=== PATIENT | male | born 1960 | race Caucasian/White ===

== ENCOUNTER 2017-08-26 15:11 | Emergency (ER) | payer BC ==
[~2017-08-26] VITALS: Ht 185.4 cm; Wt 141.1 kg
[~2017-08-26 15:11] MED LIST: ALEVE220 MG PO; ASPIRIN EC81 MG PO; BENADRYL25 MG PO; IBUPROFEN800 MG PO
[2017-08-26] MEDS ORDERED: HYOSCYAMINE0.125 M1 SL (15:45)
[2017-08-26] MEDS ORDERED: LATANOPROST2.5 ML OPTH (15:45)
[2017-08-26] MEDS ORDERED: LEVOTHYROXINE50 MCG PO (15:45)
[2017-08-26] MEDS ORDERED: LISINOPRIL10 MG PO (15:45)
[2017-08-26] MEDS ORDERED: GLUCOSAMINE1000 MG PO (15:46)
--- NOTE | 2017-08-28 17:48 | EKG ---
[facility] [address] [facility] [place], [place] [address] Signed Sinus bradycardia with sinus arrhythmia Otherwise normal ECG No previous ECGs available Confirmed by NIKO TERAN MD ([id number]) on 08/28/2017 5:47:42 PM Electronically Signed By: NIKO TERAN MD 08/28/17 1748 PATIENT NAME: OMAYRA ALVARADO Electrocardiogram DATE OF : 62 PHYSICIAN: NIKO TERAN MD REPORT #: [id number] REPORT IS CONFIDENTIAL AND NOT TO BE RELEASED WITHOUT AUTHORIZATION
== END 2017-08-26 17:24 | disposition home or self-care (01) ==
LOC: ED 15:11
DX: I49.3 Ventricular premature depolarization (principal); R42 Dizziness and giddiness; E03.9 Hypothyroidism, unspecified; I10 Essential (primary) hypertension; K21.9 Gastro-esophageal reflux disease without esophagitis; Z87.891 Personal history of nicotine dependence; Z88.8 Allergy status to other drugs, medicaments and biological substances; Z79.899 Other long term (current) drug therapy; Z79.82 Long term (current) use of aspirin
CPT/HCPCS: 70450; 71045; 80053; 84484; 85025; 85379; 85610; 93005; 93010; 99284

== ENCOUNTER 2022-06-26 09:29 | Day surgery (SDC) | payer BC ==
[~2022-06-26] VITALS: Ht 185.4 cm; Wt 142.0 kg
[~2022-06-26 09:29] MED LIST changes: +GLUCOSAMINE1000 MG PO; +HYOSCYAMINE0.125 M1 SL; +LATANOPROST2.5 ML OPTH; +LEVOTHYROXINE50 MCG PO; +LISINOPRIL10 MG PO
[2022-06-26] MEDS ORDERED: COZAAR50 MG PO (09:51)
[2022-06-26] MEDS ORDERED: XYZAL5 MG PO (09:51)
[2022-06-26] MEDS ORDERED: LUTEIN 15 MG S1 EACH PO (09:52)
--- NOTE | 2022-06-26 10:46 | NUR ---
CHECKED ON PT, HE IS RESTING COMFORTABLE, ASSURED HIM IT SHOULD NOT BE MUCH LONGER BEFORE THEY COME GET HIM FOR SURGERY. OFFERED WARM BLANKET.
--- NOTE | 2022-06-26 11:40 | NUR ---
06/26/22 1140 Lorena Brewer 1135- PT ARRIVES TO PACU AWAKE AND TALKING. PT REPORTS SOME ABD CRAMPING RATING THE PAIN A 5/10. ENCOURAGED PT TO PASS FLATUS. RESP EVEN AND UNLABORED. OXYGEN SAT MID TO HIGH 90'S ON 3L VIA CO2 NC.
--- NOTE | 2022-06-28 13:32 | OR ---
[facility] [address] [place], [place] [address] Signed DATE OF OPERATION: 06/26/2022 SURGEON: Pravin Reynolds MD PREOPERATIVE DIAGNOSIS: Recurrent diverticulitis. POSTOPERATIVE DIAGNOSES: 1. Sigmoid and left-sided diverticulosis. 2. Prominent mucosa at the appendiceal orifice (biopsied). PROCEDURE: Total colonoscopy to cecum with biopsy of appendiceal orifice. ANESTHESIA: Intravenous sedation; fentanyl 200 mcg and Versed 8 mg. INDICATIONS: This 61-year-old white man is a patient of Dr. Alexander Dumont. He is a retired nurse from [employer]. He last underwent colonoscopy in 2015 noted for diverticulosis. He had biopsies showing minimal nonspecific chronic inflammation of the cecum at that time. The patient has been bothered by recurrent left lower abdominal pain consistent with acute diverticular inflammation. He is admitted at this time to undergo colonoscopy to assure that there is no evidence of neoplasm, masquerading as acute recurrent diverticulitis. The risks of bleeding, infection, perforation, and so forth were reviewed with him, he understands and wished to proceed. FINDINGS: Numerous diverticula were seen in the sigmoid and left colon. There was no sign of stricture or neoplasm and no sign of active inflammation. The remaining colon showed no evidence of polyps or cancer. There is fullness in the appendiceal orifice, which is probably normal. The biopsy obtained, nevertheless, to assure that this did not represent an appendiceal orifice adenoma. It is recalled that he underwent appendectomy in 1999 and on that basis this may represent prominence of the mucosa with inversion of the appendiceal stump. There were no other findings of concern. DESCRIPTION OF PROCEDURE: The patient was brought to the endoscopy suite and placed in lateral decubitus position Electronically Signed By: PRAVIN REYNOLDS MD 06/28/22 1332 PATIENT NAME: OMAYRA ALVARADO OPERATIVE REPORT DATE OF : 62 REPORT #: [id number] PHYSICIAN: PRAVIN REYNOLDS MD PCP: ALEXANDER DUMONT MD REPORT IS CONFIDENTIAL AND NOT TO BE RELEASED WITHOUT AUTHORIZATION [facility] [address] [place], [place] [address] Signed given intravenous sedation to the point of slurred speech and nystagmus. Digital rectal examination was normal. Full cardiopulmonary monitoring was maintained. An Olympus video colonoscope was passed into the rectum and manipulated throughout the colon ultimately intubating the cecum. Abdominal wall stabilization was required for full intubation of the right colon. The cecum was entered fully. Irrigation was undertaken. There was no evidence of neoplasm or particularly inflammation, though there was prominence in the mucosa of the appendiceal orifice. This did not appear to be malignant and more than likely was only some mild hyperplasia, it was biopsied, nevertheless. The scope was then withdrawn and examination throughout undertaken showing no evidence of polyps or colitis, only diverticular changes of the left colon and sigmoid as previously noted. Retroflexed view of the rectum was normal. Scope was removed. The patient was taken to the recovery room in good condition. CONCLUDING DIAGNOSIS: 1. Diverticulosis without evidence of neoplasm. 2. Appendiceal orifice hyperplasia, biopsied. PLAN: We will see him back in July and review his situation. Consideration for elective sigmoid resection might be made as he has had approximately four bouts of rather significant acute sigmoid diverticulitis in the past year. Prvain Reynolds MD JM/MODL /[id number] cc: Alexander Dumont MD Copies: ALEXANDER DUMONT MD ~ Electronically Signed By: PRAVIN REYNOLDS MD 06/28/22 1332 PATIENT NAME: OMAYRA ALVARADO OPERATIVE REPORT DATE OF : 62 REPORT #: [id number] PHYSICIAN: PRAVIN REYNOLDS MD PCP: ALEXANDER DUMONT MD REPORT IS CONFIDENTIAL AND NOT TO BE RELEASED WITHOUT AUTHORIZATION
--- NOTE | 2022-07-01 12:22 | PATH ---
[facility] [address] [place], [place] [address] Signed SPECIMEN(S): A APPENDICEAL ORIFICE BIOPSY SPECIMEN SOURCE: A. APPENDICEAL ORIFICE BIOPSY CLINICAL HISTORY: History of diverticulosis. Postop: Diverticulosis, appendiceal orifice hyperplasia. FINAL PATHOLOGIC DIAGNOSIS: Appendiceal orifice biopsy: - Colonic mucosa with slight hyperplastic features (three fragments). - Negative for malignancy. JVR:smh:C2NR MICROSCOPIC EXAMINATION: Histologic sections of all submitted blocks are examined by light microscopy. These findings, together with the gross examination, support the pathologic diagnosis. GROSS DESCRIPTION: The specimen, labeled "AP, appendiceal orifice biopsy," is received in formalin and consists of three barry soft tissue fragments that measure 0.1-0.2 cm in greatest dimension. The specimen is entirely submitted in cassette (Y1). VB (under the direct supervision of a pathologist) The Gross Description was prepared using a voice recognition system. The report was reviewed for accuracy; however, sound-alike word errors, addition and/or deletions may occur. If there is any question about this report, please contact Client Services. PERFORMING LABORATORY: The technical component was performed by [facility], [address] [place] [id number] (CLIA# [id number]). Professional interpretation was performed by [facility] - [facility], [address] [place] [id number] (CLIA#: [id number]). Diagnostician: Krystian Cotter MD Pathologist Electronically Signed 07/01/2022 PATIENT NAME: OMAYRA ALVARADO PATHOLOGY DATE OF : 62 REPORT #: [id number] PHYSICIAN: [facility] PCP: ANTHONY OLIVAREZ MD REPORT IS CONFIDENTIAL AND NOT TO BE RELEASED WITHOUT AUTHORIZATION [address] [address] Signed Copies: ~ PATIENT NAME: OMAYRA ALVARADO PATHOLOGY DATE OF : 62 REPORT #: [id number] PHYSICIAN: [facility] PCP: ANTHONY LOIVAREZ MD REPORT IS CONFIDENTIAL AND NOT TO BE RELEASED WITHOUT AUTHORIZATION
== END 2022-06-26 12:15 | disposition home or self-care (01) ==
LOC: OPS 09:29 → DS 09:33 → OPS 11:00 → DS 11:00 → OPS 12:15 → DS 13:00
PROVIDERS: ATTEND Surgery
PROC: 0DBE8ZX Excision of Large Intestine, Via Natural or Artificial Opening Endoscopic, Diagnostic (ICD-10-PCS; principal; 2022-06-26 11:00)
DX: Z12.11 Encounter for screening for malignant neoplasm of colon (principal); K57.30 Diverticulosis of large intestine without perforation or abscess without bleeding; E66.01 Morbid (severe) obesity due to excess calories; H40.9 Unspecified glaucoma; Z90.49 Acquired absence of other specified parts of digestive tract; Z68.41 Body mass index [BMI] 40.0-44.9, adult
CPT/HCPCS: 99153; G0500; J2250; J3010